=== PATIENT | male | born 1960 | race African-American/Black ===

== ENCOUNTER 2020-02-22 13:40 | Outpatient (CLI) | payer BC ==
--- NOTE | 2020-02-22 14:08 | RAD ---
XR Chest Pa Lat STANDARD HISTORY: Shortness of breath COMPARISON: 12/29/2019 FINDINGS: The heart size normal. The lungs are expanded with mild patchy opacities in the lung gutierrez bilaterally. No lobar consolidation, pneumothoraces or pleural effusions are seen. IMPRESSION: Possibility of pneumonia should be considered.
== END 2020-02-22 13:41 | disposition home or self-care (01) ==
LOC: BICRAD 13:40
PROVIDERS: ATTEND Family Medicine
DX: J45.909 Unspecified asthma, uncomplicated (principal); R06.02 Shortness of breath
CPT/HCPCS: 71046

== ENCOUNTER 2020-03-20 08:01 | Outpatient (CLI) | payer BC ==
--- NOTE | 2020-03-20 08:40 | RAD ---
2 VIEW CHEST: Date: 03/20/2020 HISTORY: Pneumonia. COMPARISON: 02/22/2020. FINDINGS: There continue to be hazy infiltrates in the peripheral lung bases bilaterally. Upper lung zones appe ar clear. Heart and mediastinum unremarkable. IMPRESSION: Persistent bibasilar hazy infiltrates, similar to the prior exam. POS: AGW
== END 2020-03-20 08:02 | disposition home or self-care (01) ==
LOC: BICRAD 08:01
PROVIDERS: ATTEND Family Medicine
DX: J18.9 Pneumonia, unspecified organism (principal); R91.8 Other nonspecific abnormal finding of lung field
CPT/HCPCS: 71046

== ENCOUNTER 2020-04-18 12:55 | Outpatient (CLI) | payer BC ==
--- NOTE | 2020-04-18 14:34 | RAD ---
CHEST TWO VIEWS: 04/18/20 HISTORY: Shortness of breath. History of COVID positive. COMPARISON: 03/20/20. FINDINGS: Again noted are some patchy interstitial and ground glass opacity changes noted bilaterally in the mi d and lower lung zones. There is no evidence for new confluent pneumonia, overt edema, or pleural eff usion. Compared to an older study of 04/04/13, there are persistent patchy ground glass opacity and i nterstitial changes which have developed since that study. Evidence for some continued bilateral lung disease. IMPRESSION: Persistent bilateral interstitial and ground glass opacity changes in the mid and lower lung zones, e vidence for some persistent COVID pneumonia findings which are definitely new when compared to study. Continued short term follow-up. POS: ARCADIO
== END 2020-04-18 12:56 | disposition home or self-care (01) ==
LOC: BICRAD 12:55
PROVIDERS: ATTEND Internal Medicine Pulmonary Disease
DX: R06.00 Dyspnea, unspecified (principal); R91.8 Other nonspecific abnormal finding of lung field
CPT/HCPCS: 71046

== ENCOUNTER 2020-07-18 09:58 | Outpatient (CLI) | payer BC ==
--- NOTE | 2020-07-18 11:01 | RAD ---
RADIOGRAPH CHEST 2 VIEWS: Date: 07/18/2020. HISTORY: A 60-year-old male with dyspnea. FINDINGS: There is no air space density, pulmonary edema, pleural effusion, pneumothorax, or cardiomegaly. IMPRESSION: No acute cardiopulmonary findings. jn [] POS: BEL
== END 2020-07-18 09:59 | disposition home or self-care (01) ==
LOC: BICRAD 09:58
PROVIDERS: ATTEND Internal Medicine Pulmonary Disease
DX: R06.00 Dyspnea, unspecified (principal)
CPT/HCPCS: 71046